=== PATIENT | female | born 1960 | race Caucasian/White ===

== ENCOUNTER 2020-12-19 08:27 | Inpatient (IN) | payer BC, OTHER ==
[2020-12-19] MEDS ORDERED: Dexamethasone 10 MG/ML VIAL ONE (08:57)
[2020-12-19 09:35] LABS: Hemoglobin 13.9 g/dL (12.0-16.0); Mean Corpuscular HGB CONC 30.8 g/dL (32.0-36.0); Mean Corpuscular Hemoglobin 27.1 pg (27.0-31.0); Mean Corpuscular Volume 88.1 fL (78.0-98.0); Mean Platelet Volume 8.1 fL (7.4-10.4); Platelet Count 224 thou/uL (130-400); RBC Distribution Width 13.4 % (11.5-14.5); Red Blood Cell (RBC) Count 5.15 mill/uL (4.20-5.40); White Blood Cell (WBC) Count 15.3 thou/uL (4.8-10.8)
[2020-12-19 09:45] LABS: ALT (SGPT) 51 U/L (8-55); AST (SGOT) 48 U/L (5-34); Albumin 3.3 g/dL (3.4-4.8); Alkaline Phosphatase 108 U/L (40-110); Anion Gap 11 mmol/L (10-20); BUN (Urea Nitrogen) 9 mg/dL (9.8-20.1); Bilirubin, Total 0.4 mg/dL (0.2-1.2); Calc. Creatinine Clearance 0 mL/min (70-130); Calcium 8.9 mg/dL (7.8-10.44); Carbon Dioxide 29 mmol/L (23-31); Chloride 104 mmol/L (98-107); Globulin 4.1 g/dL (2.4-3.5); Glucose 123 mg/dL (80-115); Potassium 4.3 mmol/L (3.5-5.1); Protein, Total 7.4 g/dL (5.8-8.1); Sodium 140 mmol/L (136-145)
[2020-12-19 09:47] LABS: Band 9 % (5-11); Lymphocytes 6 % (21-51); MDiff Complete? YES; Monocytes 5 % (0-10); Neutrophil 80 % (42-75); Platelet Morphology Comment Appears Adequate; RBC Morphology Normal
[2020-12-19] MEDS ORDERED: Acetaminophen 650 MG Suppository PR PRN (11:46)
[2020-12-19] MEDS ORDERED: Albuterol 200 PUFF (6.7GM INHALER) INH PRN (12:12)
[2020-12-19] MEDS ORDERED: Acetaminophen 325 MG TAB PO SCH (13:00)
[2020-12-19 13:35] VITALS: BMI 33.8
[2020-12-19] MEDS ORDERED: REMDESIVIR (EUA) 200 MG in Sodium Chloride 0.9% 250 ML 210 ML IV SCH (13:45)
[2020-12-19] MEDS: cefTRIAXone\\ROCEPHIN 1 GM in Sodium Chloride 0.9% 100 ML IVPB SCH (13:53)
[2020-12-19] MEDS: Azithromycin 500 MG in Sodium Chloride 0.9% 250 ML 250 ML IVPB SCH (14:47)
[2020-12-19] MEDS: Nystatin 500,000 UNITS/5 ML UDCUP SSW SCH ×3 (14:47→20:28)
[2020-12-19] MEDS ORDERED: Acetaminophen 325 MG TAB PO PRN (15:23)
[2020-12-19] MEDS: Mometasone 200 MCG/Formoterol 5 MCG 120 PUFF INHALER INH SCH (17:22)
[2020-12-19] MEDS: Montelukast Sodium 10 mg Tablet PO SCH (20:28)
[2020-12-19] MEDS: Atorvastatin Calcium 10 MG TAB PO SCH (20:28)
[2020-12-20] MEDS: Levothyroxine 150 MCG TAB PO SCH (06:55)
[2020-12-20] MEDS: Mometasone 200 MCG/Formoterol 5 MCG 120 PUFF INHALER INH SCH ×2 (07:00→17:18)
[2020-12-20 07:10] LABS: Anion Gap 15 mmol/L (10-20); BUN (Urea Nitrogen) 10 mg/dL (9.8-20.1); Calc. Creatinine Clearance 135 mL/min (70-130); Calcium 8.8 mg/dL (7.8-10.44); Carbon Dioxide 22 mmol/L (23-31); Chloride 106 mmol/L (98-107); Glucose 149 mg/dL (80-115); Potassium 4.6 mmol/L (3.5-5.1); Sodium 138 mmol/L (136-145)
[2020-12-20] MEDS: Enoxaparin Sodium 40 MG/0.4 ML SYRINGE SC SCH (07:51)
[2020-12-20] MEDS: Nystatin 500,000 UNITS/5 ML UDCUP SSW SCH ×4 (07:51→20:33)
[2020-12-20] MEDS: Ascorbic Acid 500 mg Chewable Tablet PO SCH (07:52)
[2020-12-20] MEDS: Zinc Sulfate 220 MG CAP PO SCH (07:53)
[2020-12-20] MEDS ORDERED: Dexamethasone 4 MG TAB PO SCH (08:00)
[2020-12-20 08:57] LABS: Band 5 % (5-11); Hemoglobin 12.3 g/dL (12.0-16.0); Lymphocytes 5 % (21-51); MDiff Complete? YES; Mean Corpuscular HGB CONC 31.8 g/dL (32.0-36.0); Mean Corpuscular Hemoglobin 27.9 pg (27.0-31.0); Mean Corpuscular Volume 87.5 fL (78.0-98.0); Mean Platelet Volume 8.1 fL (7.4-10.4); Monocytes 8 % (0-10); Neutrophil 81 % (42-75); Platelet Count 217 thou/uL (130-400); Platelet Morphology Comment Appears Adequate; RBC Distribution Width 13.2 % (11.5-14.5); Reactive Lymphocytes 1 % (0-10); Red Blood Cell (RBC) Count 4.42 mill/uL (4.20-5.40); White Blood Cell (WBC) Count 13.6 thou/uL (4.8-10.8)
[2020-12-20] MEDS ORDERED: Pantoprazole 40 MG VIAL IVP SCH (09:00)
[2020-12-20] MEDS: Loratadine/Pseudoephedrine 10/240 mg Tablet PO SCH (11:07)
[2020-12-20] MEDS: cefTRIAXone\\ROCEPHIN 1 GM in Sodium Chloride 0.9% 100 ML IVPB SCH (11:07)
[2020-12-20] MEDS ORDERED: FLU VACC QS2020-21(6MOS UP)/PF 60 MCG/0.5 ML SYRINGE IM ONE (13:45)
[2020-12-20] MEDS: REMDESIVIR (EUA) 100 MG in Sodium Chloride 0.9% 250 ML 230 ML IV SCH (15:29)
[2020-12-20] MEDS: hydrALAZINE 20 MG/ML VIAL SLOW IVP PRN (16:28)
[2020-12-20] MEDS: Azithromycin 500 MG in Sodium Chloride 0.9% 250 ML 250 ML IVPB SCH (17:18)
[2020-12-20] MEDS: Montelukast Sodium 10 mg Tablet PO SCH (20:33)
[2020-12-20] MEDS: Atorvastatin Calcium 10 MG TAB PO SCH (20:33)
[2020-12-21] MEDS: Levothyroxine 150 MCG TAB PO SCH (05:28)
[2020-12-21] MEDS: Mometasone 200 MCG/Formoterol 5 MCG 120 PUFF INHALER INH SCH ×2 (05:28→18:11)
[2020-12-21 07:08] LABS: Anion Gap 16 mmol/L (10-20); BUN (Urea Nitrogen) 12 mg/dL (9.8-20.1); Calc. Creatinine Clearance 129 mL/min (70-130); Calcium 9.2 mg/dL (7.8-10.44); Carbon Dioxide 22 mmol/L (23-31); Chloride 104 mmol/L (98-107); Glucose 142 mg/dL (80-115); Potassium 4.8 mmol/L (3.5-5.1); Sodium 137 mmol/L (136-145)
[2020-12-21] MEDS: Zinc Sulfate 220 MG CAP PO SCH (07:17)
[2020-12-21] MEDS: Loratadine/Pseudoephedrine 10/240 mg Tablet PO SCH (07:17)
[2020-12-21] MEDS: Ascorbic Acid 500 mg Chewable Tablet PO SCH (07:17)
[2020-12-21] MEDS: Dexamethasone 4 mg/ml Vial SLOW IVP SCH (07:17)
[2020-12-21] MEDS: Nystatin 500,000 UNITS/5 ML UDCUP SSW SCH ×4 (07:17→20:22)
[2020-12-21] MEDS: Enoxaparin Sodium 40 MG/0.4 ML SYRINGE SC SCH (07:17)
[2020-12-21 08:30] LABS: Hemoglobin 13.2 g/dL (12.0-16.0); Lymphocytes 11 % (21-51); MDiff Complete? YES; Mean Corpuscular HGB CONC 30.9 g/dL (32.0-36.0); Mean Corpuscular Volume 87.5 fL (78.0-98.0); Mean Platelet Volume 8.5 fL (7.4-10.4); Monocytes 13 % (0-10); Neutrophil 76 % (42-75); Platelet Count 250 thou/uL (130-400); Platelet Morphology Comment Appears Adequate; RBC Distribution Width 13.5 % (11.5-14.5); Red Blood Cell (RBC) Count 4.88 mill/uL (4.20-5.40); White Blood Cell (WBC) Count 11.4 thou/uL (4.8-10.8)
[2020-12-21] MEDS ORDERED: Dexamethasone 20 MG/5 ML VIAL SLOW IVP SCH (09:00)
[2020-12-21] MEDS ORDERED: Amlodipine 5 MG TAB PO SCH (09:15)
[2020-12-21] MEDS: Azithromycin 500 MG in Sodium Chloride 0.9% 250 ML 250 ML IVPB SCH (12:32)
[2020-12-21] MEDS: hydrALAZINE 20 MG/ML VIAL SLOW IVP PRN (12:42)
[2020-12-21] MEDS: REMDESIVIR (EUA) 100 MG in Sodium Chloride 0.9% 250 ML 230 ML IV SCH (14:57)
[2020-12-21] MEDS: Atorvastatin Calcium 10 MG TAB PO SCH (20:22)
[2020-12-21] MEDS: Montelukast Sodium 10 mg Tablet PO SCH (20:22)
[2020-12-22] MEDS: Levothyroxine 150 MCG TAB PO SCH (05:04)
[2020-12-22] MEDS: Mometasone 200 MCG/Formoterol 5 MCG 120 PUFF INHALER INH SCH ×2 (05:04→18:08)
[2020-12-22 07:14] LABS: Prothrombin Time 12.9 sec (12.0-14.7)
[2020-12-22 07:15] LABS: PTT 28.4 sec (22.9-36.1)
[2020-12-22 07:19] LABS: Hemoglobin 12.8 g/dL (12.0-16.0); Mean Corpuscular HGB CONC 32.1 g/dL (32.0-36.0); Mean Corpuscular Hemoglobin 27.7 pg (27.0-31.0); Mean Corpuscular Volume 86.5 fL (78.0-98.0); Mean Platelet Volume 7.9 fL (7.4-10.4); Platelet Count 270 thou/uL (130-400); RBC Distribution Width 13.2 % (11.5-14.5); Red Blood Cell (RBC) Count 4.62 mill/uL (4.20-5.40); White Blood Cell (WBC) Count 16.4 thou/uL (4.8-10.8)
[2020-12-22 07:24] LABS: Anion Gap 15 mmol/L (10-20); BUN (Urea Nitrogen) 17 mg/dL (9.8-20.1); Calc. Creatinine Clearance 131 mL/min (70-130); Calcium 9.1 mg/dL (7.8-10.44); Carbon Dioxide 22 mmol/L (23-31); Chloride 103 mmol/L (98-107); Glucose 94 mg/dL (80-115); Potassium 3.9 mmol/L (3.5-5.1); Sodium 136 mmol/L (136-145)
[2020-12-22] MEDS: Amlodipine 10 MG TAB PO SCH (08:20)
[2020-12-22] MEDS: Enoxaparin Sodium 40 MG/0.4 ML SYRINGE SC SCH (08:20)
[2020-12-22] MEDS: Loratadine/Pseudoephedrine 10/240 mg Tablet PO SCH (08:20)
[2020-12-22] MEDS: Dexamethasone 4 mg/ml Vial SLOW IVP SCH (08:21)
[2020-12-22] MEDS: Zinc Sulfate 220 MG CAP PO SCH (08:21)
[2020-12-22] MEDS: Ascorbic Acid 500 mg Chewable Tablet PO SCH (08:21)
[2020-12-22] MEDS: Nystatin 500,000 UNITS/5 ML UDCUP SSW SCH ×4 (08:23→21:15)
[2020-12-22 08:24] LABS: Band 7 % (5-11); Lymphocytes 14 % (21-51); MDiff Complete? YES; Monocytes 8 % (0-10); Neutrophil 67 % (42-75); Platelet Morphology Comment Appears Adequate; Polychromasia SLIGHT = 2-3 cells (100X) (0-2/hpf); Reactive Lymphocytes 4 % (0-10)
[2020-12-22] MEDS ORDERED: Amlodipine 5 MG TAB PO SCH (09:00)
[2020-12-22] MEDS: Azithromycin 500 MG in Sodium Chloride 0.9% 250 ML 250 ML IVPB SCH (13:00)
[2020-12-22] MEDS: REMDESIVIR (EUA) 100 MG in Sodium Chloride 0.9% 250 ML 230 ML IV SCH (15:50)
[2020-12-22] MEDS: Atorvastatin Calcium 10 MG TAB PO SCH (21:14)
[2020-12-22] MEDS: Montelukast Sodium 10 mg Tablet PO SCH (21:14)
[2020-12-23] MEDS: Mometasone 200 MCG/Formoterol 5 MCG 120 PUFF INHALER INH SCH ×2 (06:07→18:00)
[2020-12-23] MEDS: Levothyroxine 150 MCG TAB PO SCH (06:07)
[2020-12-23 06:20] LABS: #Eosinphils 0.1 thou/uL (0.0-0.7); #Lymphocytes 1.8 thou/uL (1.20-3.40); #Monocytes 1.4 thou/uL (0.11-0.59); #Neutrophils 12.3 thou/uL (1.40-6.50); %Eosinophils 0.4 % (0.0-10.0); %Lymphocytes 11.3 % (21.0-51.0); %Neutrophils 79.3 % (42.0-75.0); Hemoglobin 13.3 g/dL (12.0-16.0); Mean Corpuscular HGB CONC 33.5 g/dL (32.0-36.0); Mean Corpuscular Volume 86.4 fL (78.0-98.0); Mean Platelet Volume 7.7 fL (7.4-10.4); Platelet Count 264 thou/uL (130-400); RBC Distribution Width 13.1 % (11.5-14.5); Red Blood Cell (RBC) Count 4.58 mill/uL (4.20-5.40); White Blood Cell (WBC) Count 15.6 thou/uL (4.8-10.8)
[2020-12-23 06:32] LABS: PTT 27.3 sec (22.9-36.1); Prothrombin Time 13.5 sec (12.0-14.7)
[2020-12-23 06:44] LABS: Anion Gap 15 mmol/L (10-20); BUN (Urea Nitrogen) 16 mg/dL (9.8-20.1); Calc. Creatinine Clearance 148 mL/min (70-130); Calcium 8.9 mg/dL (7.8-10.44); Carbon Dioxide 22 mmol/L (23-31); Chloride 102 mmol/L (98-107); Glucose 84 mg/dL (80-115); Potassium 4.5 mmol/L (3.5-5.1); Sodium 134 mmol/L (136-145)
[2020-12-23] MEDS: Amlodipine 10 MG TAB PO SCH (09:18)
[2020-12-23] MEDS: Loratadine/Pseudoephedrine 10/240 mg Tablet PO SCH (09:18)
[2020-12-23] MEDS: Enoxaparin Sodium 40 MG/0.4 ML SYRINGE SC SCH (09:18)
[2020-12-23] MEDS: Zinc Sulfate 220 MG CAP PO SCH (09:18)
[2020-12-23] MEDS: Nystatin 500,000 UNITS/5 ML UDCUP SSW SCH ×4 (09:18→21:31)
[2020-12-23] MEDS: Dexamethasone 4 mg/ml Vial SLOW IVP SCH (09:18)
[2020-12-23] MEDS: Ascorbic Acid 500 mg Chewable Tablet PO SCH (09:18)
[2020-12-23] MEDS: Azithromycin 500 MG in Sodium Chloride 0.9% 250 ML 250 ML IVPB SCH (12:56)
[2020-12-23] MEDS: REMDESIVIR (EUA) 100 MG in Sodium Chloride 0.9% 250 ML 230 ML IV SCH (15:09)
[2020-12-23] MEDS: Atorvastatin Calcium 10 MG TAB PO SCH (21:29)
[2020-12-23] MEDS: Montelukast Sodium 10 mg Tablet PO SCH (21:29)
[2020-12-24] MEDS: Levothyroxine 150 MCG TAB PO SCH (06:21)
[2020-12-24] MEDS: Mometasone 200 MCG/Formoterol 5 MCG 120 PUFF INHALER INH SCH ×2 (06:21→17:58)
[2020-12-24 06:39] LABS: Anion Gap 14 mmol/L (10-20); BUN (Urea Nitrogen) 14 mg/dL (9.8-20.1); Calc. Creatinine Clearance 137 mL/min (70-130); Calcium 8.8 mg/dL (7.8-10.44); Carbon Dioxide 24 mmol/L (23-31); Chloride 103 mmol/L (98-107); Glucose 91 mg/dL (80-115); Potassium 4.2 mmol/L (3.5-5.1); Sodium 137 mmol/L (136-145)
[2020-12-24 06:47] LABS: Hemoglobin 13.5 g/dL (12.0-16.0); Mean Corpuscular HGB CONC 33.7 g/dL (32.0-36.0); Mean Corpuscular Hemoglobin 29.6 pg (27.0-31.0); Mean Corpuscular Volume 87.8 fL (78.0-98.0); Mean Platelet Volume 7.5 fL (7.4-10.4); Platelet Count 258 thou/uL (130-400); RBC Distribution Width 12.9 % (11.5-14.5); Red Blood Cell (RBC) Count 4.57 mill/uL (4.20-5.40); White Blood Cell (WBC) Count 14.3 thou/uL (4.8-10.8)
[2020-12-24 06:50] LABS: Band 1 % (5-11); Lymphocytes 20 % (21-51); MDiff Complete? YES; Metamyelocyte 2 % (0-0); Monocytes 7 % (0-10); Myelocyte 1 % (0-0); Neutrophil 69 % (42-75); Platelet Morphology Comment Appears Adequate
[2020-12-24] MEDS: Nystatin 500,000 UNITS/5 ML UDCUP SSW SCH ×4 (09:15→20:26)
[2020-12-24] MEDS: Enoxaparin Sodium 40 MG/0.4 ML SYRINGE SC SCH (09:15)
[2020-12-24] MEDS: Ascorbic Acid 500 mg Chewable Tablet PO SCH (09:15)
[2020-12-24] MEDS: Zinc Sulfate 220 MG CAP PO SCH (09:15)
[2020-12-24] MEDS: Dexamethasone 4 mg/ml Vial SLOW IVP SCH (09:15)
[2020-12-24] MEDS: Amlodipine 10 MG TAB PO SCH (09:15)
[2020-12-24] MEDS: Loratadine/Pseudoephedrine 10/240 mg Tablet PO SCH (09:15)
[2020-12-24] MEDS: Azithromycin 500 MG in Sodium Chloride 0.9% 250 ML 250 ML IVPB SCH (13:44)
[2020-12-24] MEDS: Montelukast Sodium 10 mg Tablet PO SCH (20:24)
[2020-12-24] MEDS: Atorvastatin Calcium 10 MG TAB PO SCH (20:24)
[2020-12-25] MEDS: Mometasone 200 MCG/Formoterol 5 MCG 120 PUFF INHALER INH SCH (05:27)
[2020-12-25] MEDS: Levothyroxine 150 MCG TAB PO SCH (05:27)
[2020-12-25] MEDS: Nystatin 500,000 UNITS/5 ML UDCUP SSW SCH ×2 (09:03→13:30)
[2020-12-25] MEDS: Ascorbic Acid 500 mg Chewable Tablet PO SCH (09:03)
[2020-12-25] MEDS: Amlodipine 10 MG TAB PO SCH (09:03)
[2020-12-25] MEDS: Zinc Sulfate 220 MG CAP PO SCH (09:03)
[2020-12-25] MEDS: Loratadine/Pseudoephedrine 10/240 mg Tablet PO SCH (09:04)
[2020-12-25] MEDS: Dexamethasone 4 mg/ml Vial SLOW IVP SCH (09:04)
[2020-12-25] MEDS: Enoxaparin Sodium 40 MG/0.4 ML SYRINGE SC SCH (09:04)
[2020-12-25] MEDS ORDERED: Dexamethasone 4 MG TAB PO SCH (10:30)
[2020-12-25] MEDS: Azithromycin 500 MG in Sodium Chloride 0.9% 250 ML 250 ML IVPB SCH (13:03)
[2020-12-25 17:28] VITALS: BP 125/65; TEMP 98.8
== END 2020-12-25 16:54 | disposition home or self-care (01) | DRG 177 ==
LOC: ERS 08:27 → T4-A 11:26
PROVIDERS: ADMIT Internal Medicine; ATTEND Internal Medicine
PROC: XW033E5 Introduction of Remdesivir Anti-infective into Peripheral Vein, Percutaneous Approach, New Technology Group 5 (ICD-10-PCS; 2020-12-19)
PROC: XW13325 Transfusion of Convalescent Plasma (Nonautologous) into Peripheral Vein, Percutaneous Approach, New Technology Group 5 (ICD-10-PCS; principal; 2020-12-20)
DX: U07.1 COVID-19 (principal); J12.82 Pneumonia due to coronavirus disease 2019; J96.01 Acute respiratory failure with hypoxia; R04.2 Hemoptysis; B37.0 Candidal stomatitis; E87.1 Hypo-osmolality and hyponatremia; E78.00 Pure hypercholesterolemia, unspecified; E78.5 Hyperlipidemia, unspecified; E03.9 Hypothyroidism, unspecified; J45.909 Unspecified asthma, uncomplicated; Z79.899 Other long term (current) drug therapy; Z79.890 Hormone replacement therapy
CPT/HCPCS: 36415; 36430; 71045; 80048; 80053; 82728; 84484; 85025; 85379; 85610; 85730; 86140; 86850; 86900; 86901; 93005; 96374; C9113; J0360; J0456; J0696; J1100; J1650; J3490; J7050; J8540; P9017

== ENCOUNTER 2021-04-30 08:28 | Outpatient (CLI) | payer OTHER | END 2021-04-30 08:29 | disposition home or self-care (01) | LOC: BICULT 08:28 | PROVIDERS: ATTEND Family Medicine | DX: R79.89 Other specified abnormal findings of blood chemistry (principal); R93.2 Abnormal findings on diagnostic imaging of liver and biliary tract | CPT/HCPCS: 93975 ==